=== PATIENT | male | born 1955 | race Caucasian/White ===

== ENCOUNTER 2018-06-30 16:47 | Inpatient (IN) ==
[2018-06-30] MEDS ORDERED: predniSONE 20 MG Tablet PO ONE (17:38)
[2018-06-30] MEDS ORDERED: Clindamycin 600 mg/NS Premix 600 MG/50 ML PIGGYBACK IV.SIG ONE (17:38)
--- NOTE | 2018-06-30 17:48 | ED ---
HPI General Chief complaint: Eye Problems Stated complaint: Doctor Sent Time Seen by Provider: 06/30/18 17:11 Source: patient Mode of arrival: ambulatory Limitations: no limitations History of Present Illness HPI Narrative: 62-year-old presents to the emergency department for evaluation of left eyelid swelling that has been persistent for a couple of days. Patient states that initially there was a stye present. He used bacitracin ointment and warm compresses without relief. Says that he was placed on Augmentin for 3 days, followed up with ophthalmology, Dr. Mayorga, and she recommended he come in for IV abx and steroids. Patient brings in a prescription from her office. He says he has chronic acne and takes doxycycline for prevention. He states that he has had a history of acne and similar skin lesions. He says that he occasionally requires antibiotics for improvement. Currently, he denies fever, chills, chest pain, shortness of breath, abdominal pain, nausea, vomiting, diarrhea. He says he has a history of hypertension and CKD 3. He says he has had a kidney removed secondary to kidney cancer. His oncology nurse navigator is Dr. Nagy. chief complaint: Reports eye pain Onset (ago): day(s) Onset description: gradual Duration: constant Location: Reports left eye Eye Symptoms: Reports pain Severity: mild Context: Denies history of glaucoma, recent eye procedure, contact lens use and trauma Associated symptoms: Denies headache, nausea/vomiting, fever, shortness of breath, numbness and weakness Related Data Home Medications Medication Instructions Recorded Confirmed amoxicillin-pot clavulanate 1 tab PO BID 06/30/18 06/30/18 [Augmentin] doxycycline hyclate 50 mg PO BID 06/30/18 06/30/18 losartan 100 mg PO DAILY 06/30/18 06/30/18 metoprolol succinate [Toprol XL] 50 mg PO DAILY 06/30/18 06/30/18 Allergies Allergy/AdvReac Type Severity Reaction Status Date / Time acetaminophen [From Vicodin] Allergy Itching, Verified 06/30/18 17:40 Generalized hydrocodone [From Vicodin] Allergy Itching, Verified 06/30/18 17:40 Generalized meperidine [From Demerol] Allergy Itching, Verified 06/30/18 17:40 Generalized Review of Systems ROS: all other systems reviewed are negative [facility] Medical History Medical History CKD (chronic kidney disease) stage 3, GFR 30-59 ml/min (Chronic) HTN (hypertension) (Chronic) Social History Social History Substance History: No History of Abuse Second Hand Smoke Exposure: No Smoking Status: Never smoker How Often Do You Have a Drink Containing Alcohol: Never Recent Travel in [facility] within the Last 8 Weeks: No Recent Out of Country Travel within the Last 8 Weeks: No Immunization History Tetanus Immunization: Unsure Exam Narrative Exam Narrative: GENERAL: Well-developed, well-nourished no acute distress SKIN: Focused skin assessment warm/dry. HEAD: Atraumatic. Normocephalic. EYES: Pupils equal and round. No scleral icterus. No injection or drainage. The left upper eyelid appears edematous and erythematous without surrounding edema. No lymph angiopathic spread. No ptosis, no proptosis. EOMI without restriction or pain. PERRLA. Mild tenderness to palpation of the upper eyelid. No discharge. ENT: No nasal bleeding or discharge. Mucous membranes pink and moist. NECK: Trachea midline. No JVD. CARDIOVASCULAR: Regular rate and rhythm. No murmur appreciated. RESPIRATORY: No accessory muscle use. Clear to auscultation. Breath sounds equal bilaterally. GASTROINTESTINAL: Abdomen soft, non-tender, nondistended. Hepatic and splenic margins not palpable. MUSCULOSKELETAL: No obvious deformities. No clubbing. No cyanosis. No edema. NEUROLOGICAL: Awake and alert. No obvious cranial nerve deficits. Motor grossly within normal limits. Normal speech. PSYCHIATRIC: Appropriate mood and affect; insight and judgment normal. Course Initial Documented Vital Signs Temperature 99.0 F 06/30/18 16:54 Pulse Rate 66 06/30/18 16:54 Respiratory Rate 16 06/30/18 16:54 Blood Pressure 176/77 H 06/30/18 16:54 Pulse Oximetry 98 06/30/18 16:54 Last Documented Vital Signs Temperature 99.0 F 06/30/18 16:54 Pulse Rate 64 06/30/18 19:49 Respiratory Rate 18 06/30/18 19:49 Blood Pressure 133/60 06/30/18 19:49 Pulse Oximetry 98 06/30/18 19:49 Medical Decision Making MDM Narrative Medical decision making narrative: 62-year-old male presents to the emergency department evaluation at the recommendation of Dr. Mayorga for left eyelid swelling and failure of outpatient antibiotics. She states that she saw this patient this morning and performed multiple tests to include visual acuity which was 20/20 bilateral, and states his pressures were normal. She says that she does not believe patient requires a CT at this time but should receive IV antibiotics and steroids. Vital signs are stable. Physical exam findings demonstrate a well-developed, well-nourished 70-year-old male in no acute distress. The left upper eyelid appears edematous and erythematous without surrounding edema. No lymph angiopathic spread. No ptosis , no proptosis. EOMI without restriction or pain. PERRLA. Mild tenderness to palpation of the upper eyelid. No discharge. Based off of H&P, I believe his condition is amenable to clindamycin IV. Will initiate this and prednisone. Ordered labs for evaluation. No leukocytosis. BUN/Cr 25/2.30, consistent with patient's history of CKD III. Will admit for preseptal cellulitis with failure of outpatient antibiotics. Medical Screen Exam Complete: Yes Emergency Medical Condition: Yes Lab Data Result diagrams: 06/30/18 17:40 06/30/18 17:40 Lab Results 06/30/18 06/30/18 06/30/18 Range/Units 17:40 17:40 17:40 WBC 8.4 (4.0-11.0) th/mm3 RBC 5.56 (4.50-5.90) mil/mm3 Hgb 17.2 H (13.0-17.0) gm/dL Hct 49.5 (39.0-51.0) % MCV 89.0 (80.0-100.0) fL MCH 30.9 (27.0-34.0) pg MCHC 34.7 (32.0-36.0) % RDW 15.3 (11.6-17.2) % Plt Count 237 (150-450) th/mm3 MPV 8.1 (7.0-11.0) fL Neut % (Auto) 78.1 H (16.0-70.0) % Lymph % (Auto) 10.2 (9.0-44.0) % [place] % (Auto) 9.3 H (0.0-8.0) % Eos % (Auto) 1.6 (0.0-4.0) % Baso % (Auto) 0.8 (0.0-2.0) % Neut # (Auto) 6.6 (1.8-7.7) th/mm3 Lymph # (Auto) 0.9 L (1.0-4.8) th/mm3 [place] # (Auto) 0.8 (0.0-0.9) th/mm3 Eos # (Auto) 0.1 (0.0-0.4) th/mm3 Baso # (Auto) 0.1 (0.0-0.2) th/mm3 WBC Differential . Differential Comment Auto diff final PT 10.2 (9.8-11.6) sec INR 1.0 Ratio APTT 23.4 L (24.3-30.1) sec Sodium 139 (136-145) meq/L Potassium 4.5 (3.5-5.1) meq/L Chloride 107 (98-107) meq/L Carbon Dioxide 23.8 (21.0-32.0) meq/L Anion Gap 8 (5-15) meq/L BUN 25 H (7-18) mg/dL Creatinine 2.30 H (0.60-1.30) mg/dL Estimated GFR 29 L (>89) mL/min Random Glucose 94 (74-106) mg/dL Calcium 8.4 L (8.5-10.1) mg/dL Total Bilirubin 0.4 (0.2-1.0) mg/dL AST 38 H (15-37) U/L ALT 55 (12-78) U/L Alkaline Phosphatase 75 (45-117) U/L Total Protein 7.2 (6.4-8.2) g/dL Albumin 3.3 L (3.4-5.0) g/dL Discharge Plan Discharge Disposition Patient Disposition: 30 Still Patient Discharge Condition Condition: Stable Discharge Details Diagnosis: Preseptal cellulitis Physicians Team ED Provider: Huber Yates ED Midlevel Provider: Padmini Montemayor Primary Care Provider: UNKNOWN, Attending Provider: Avelina Mills Other Providers: Gayathria,[employer] ; Gin Mayorga Discharge Interventions Interventions: Vital Signs Last Done: 06/30/18 17:12 Status ED Status: Admitted Observation Patient
[2018-06-30 18:15] LABS: Activated Partial Thrombo Time 23.4 sec (24.3-30.1); Prothrombin Time 10.2 sec (9.8-11.6)
[2018-06-30 18:19] LABS: Baso # (Auto) 0.1 th/mm3 (0.0-0.2); Baso % (Auto) 0.8 % (0.0-2.0); Eos # (Auto) 0.1 th/mm3 (0.0-0.4); Eos % (Auto) 1.6 % (0.0-4.0); Hematocrit 49.5 % (39.0-51.0); Hemoglobin 17.2 gm/dL (13.0-17.0); Lymph # (Auto) 0.9 th/mm3 (1.0-4.8); Lymph % (Auto) 10.2 % (9.0-44.0); Mean Corpuscular HGB Conc 34.7 % (32.0-36.0); Mean Corpuscular Hemoglobin 30.9 pg (27.0-34.0); Mean Platelet Volume 8.1 fL (7.0-11.0); Mono # (Auto) 0.8 th/mm3 (0.0-0.9); Mono % (Auto) 9.3 % (0.0-8.0); Neut # (Auto) 6.6 th/mm3 (1.8-7.7); Neut % (Auto) 78.1 % (16.0-70.0); Platelet Count 237 th/mm3 (150-450); Red Blood Count 5.56 mil/mm3 (4.50-5.90); Red Cell Distribution Width 15.3 % (11.6-17.2); White Blood Count 8.4 th/mm3 (4.0-11.0)
[2018-06-30 18:30] LABS: Alanine Aminotransferase 55 U/L (12-78)
[2018-06-30 18:32] LABS: Alkaline Phosphatase 75 U/L (45-117); Total Protein 7.2 g/dL (6.4-8.2)
[2018-06-30 18:37] LABS: Albumin 3.3 g/dL (3.4-5.0); Anion Gap 8 meq/L (5-15); Aspartate Aminotransferase 38 U/L (15-37); Blood Urea Nitrogen 25 mg/dL (7-18); Calcium 8.4 mg/dL (8.5-10.1); Carbon Dioxide 23.8 meq/L (21.0-32.0); Chloride 107 meq/L (98-107); Glomerular Filtration Rate 29 mL/min (>89); Glucose,Random 94 mg/dL (74-106); Potassium 4.5 meq/L (3.5-5.1); Sodium 139 meq/L (136-145)
[2018-06-30] MEDS ORDERED: Sod Chloride 0.9% Inj 1,000 ML IV.SIG SCH (18:45)
[2018-06-30] MEDS ORDERED: Bisacodyl 10 MG Supp RECTAL PRN (19:05)
--- NOTE | 2018-06-30 19:09 | P.HPIM ---
History of Present Illness Primary Care Physician: UNKNOWN History of Present Illness: This is a 62-year-old male with a PMH of Nephrectomy and CKD Stage III who was referred to the ER by Dr. Mayorga w/ Ophthalmology for admission and IV Abx. Pt w / left eye pain/swelling for 1 month, states it initially resolved without treatment, however had recurrence of left eye pain/swelling approx 8 days ago. Was seen by Dr. Mayorga and has been on Augmentin x3 days w/ minimal improvement, seen in office today and referred to the ER for admission. Denies fever or chills, no vision changes. Pain is intermittent, mild to moderate, 5/10, non- radiating. On arrival, BP 176/77, HR 66, O2 sat 98% on RA, Temp 99.0. CBC essentially unremarkable except Hgb 17.2. INR 1.0. Creatinine 2.30, baseline per patient. S/p Clinda and Prednisone in ER. No significant pain complaints at this time. - Diagnosis (1) Preseptal cellulitis (2) Failure of outpatient treatment (3) CKD (chronic kidney disease) stage 3, GFR 30-59 ml/min Review of Systems PAST FAMILY HISTORY: Reviewed, no h/o DM or CAD. All other systems reviewed negative except as stated in HPI PMFSH - History History Provided By: Patient - Medical History Medical History: Medical History (Last Updated 06/30/18 @ 17:44 by CARRINGTON You) CKD (chronic kidney disease) stage 3, GFR 30-59 ml/min HTN (hypertension) - Tobacco History Second Hand Smoke Exposure: No Tobacco Use In Past 30 Days: No Smoking Status: Never smoker - Alcohol History How Often Do You Have a Drink Containing Alcohol: Never - Substance Use History Substance History: No History of Abuse - Travel History Recent Travel in the [place] Within the Last 8 Weeks: No Recent Travel Out of the Country Within the Last 8 Weeks: No - Immunization History Tetanus Immunization: Unsure Medications and Allergies Active Medications: Active Medications Al Hydroxide/Mg Hydroxide (Milk Of Magnesia Liq) 30 ml PO Q12H PRN PRN Reason: Mild Constipation Bisacodyl (Dulcolax Supp) 10 mg RECTAL DAILY PRN PRN Reason: SEVERE CONSITIPATION Sodium Chloride (Ns Inj) 1,000 mls @ 0 mls/hr IV.SIG BOLUS BHARTI Clindamycin/Sodium Chloride (Cleocin 900 Mg/Ns Premix) 900 mg in 50 mls @ 100 mls/hr IV.SIG Q8H [facility] Sodium Chloride (Ns Inj) 1,000 mls @ 100 mls/hr IV.CONT .Q10H [facility] Lactulose (Lactulose Liq) 30 ml PO DAILY PRN PRN Reason: SEVERE CONSITIPATION Metoprolol Succinate (Toprol Xl) 50 mg PO DAILY [facility] Non-Formulary Medication (Losartan [Losartan]) 100 mg PO DAILY [facility] Ondansetron HCl (Zofran Inj) 4 mg IV.PUSH Q6H PRN PRN Reason: NAUSEA OR VOMITING Prednisone (Deltasone) 50 mg PO DAILY [facility] Senna/Docusate Sodium (Angelique-Colace) 1 tab PO BID [facility] Sennosides (Senokot) 17.2 mg PO Q12H PRN PRN Reason: Moderate Constipation Allergies Allergy/AdvReac Type Severity Reaction Status Date / Time acetaminophen [From Vicodin] Allergy Itching, Verified 06/30/18 17:40 Generalized hydrocodone [From Vicodin] Allergy Itching, Verified 06/30/18 17:40 Generalized meperidine [From Demerol] Allergy Itching, Verified 06/30/18 17:40 Generalized Home Medications Medication Instructions Recorded Confirmed Type RX: doxycycline hyclate 50 mg PO BID 06/30/18 06/30/18 History RX: losartan 100 mg PO DAILY 06/30/18 06/30/18 History amoxicillin-pot clavulanate 1 tab PO BID 06/30/18 06/30/18 History [Augmentin] metoprolol succinate [Toprol XL] 50 mg PO DAILY 06/30/18 06/30/18 History Exam Vital signs: Vital Signs 06/30/18 16:54 Temperature 99.0 F Pulse Rate 66 Respiratory Rate 16 Blood Pressure 176/77 H Pulse Oximetry 98 Intake & Output 06/30/18 06/30/18 07/01/18 06:59 18:59 06:59 Intake Total 50 / 50 Balance 50 / 50 Weight 114.305 kg Intake: IV 50 / 50 Cleocin 600 mg/NS Premix 600 mg 50 / 50 In 50 ml @ 100 mls/hr IV.SIG ONCE ONE Rx#:[id number] Narrative: PE: GENERAL: Middle-aged white male in no acute distress. SKIN: Focused skin assessment warm and dry. HEENT: PERRLA, EOMI. No scleral icterus or conjunctival pallor. No lid lag or facial droop. Left eye w/ preseptal cellulitis/erythema/edema. CARDIOVASCULAR: Regular rate and rhythm. No obvious murmurs to auscultation. No chest tenderness to palpation. RESPIRATORY: No rhonchi or wheezing. Clear to auscultation. Breath sounds equal bilaterally. GASTROINTESTINAL: Abdomen soft, non-tender, nondistended. BS normal. MUSCULOSKELETAL: Extremities without clubbing, cyanosis, or edema. No obvious deformities. NEUROLOGICAL: Awake, alert and oriented x4. No focal neurologic deficits. Moving both upper and lower extremities spontaneously. PSYCHIATRIC: Appropriate mood and affect. Insight and judgment normal. Results - Labs CBC & Chem 7: 06/30/18 17:40 06/30/18 17:40 Labs: Short CBC 06/30/18 Range/Units 17:40 WBC 8.4 (4.0-11.0) th/mm3 Hgb 17.2 H (13.0-17.0) gm/dL Hct 49.5 (39.0-51.0) % Plt Count 237 (150-450) th/mm3 BMP 06/30/18 17:40 Sodium 139 Potassium 4.5 Chloride 107 Carbon Dioxide 23.8 BUN 25 H Creatinine 2.30 H Calcium 8.4 L Liver Function 06/30/18 Range/Units 17:40 Total Bilirubin 0.4 (0.2-1.0) mg/dL AST 38 H (15-37) U/L ALT 55 (12-78) U/L Alkaline Phosphatase 75 (45-117) U/L Albumin 3.3 L (3.4-5.0) g/dL Caprini VTE Risk Assessment Caprini VTE Risk Assessment: No/Low Risk (score <= 1) Caprini Risk Assessment Model: Point Value = 1 Point Value = 2 Point Value = 3 Point Value = 5 Age 41-60 Minor surgery BMI > 25 kg/m2 Swollen legs Varicose veins or History of unexplained or recurrent spontaneous Oral contraceptives or hormone replacement Sepsis (< 1 month) Serious lung disease, including pneumonia (< 1 month) Abnormal pulmonary function Acute myocardial infarction Congestive heart failure (< 1 month) History of inflammatory bowel disease Medical patient at bed rest Age 61-74 Arthroscopic surgery Major open surgery (> 45 min) Laparoscopic surgery (> 45 min) Malignancy Confined to bed (> 72 hours) Immobilizing plaster cast Central venous access Age >= 75 History of VTE Family history of VTE Factor V Leiden Prothrombin [id number] Lupus anticoagulant Anticardiolipin antibodies Elevated serum homocysteine Heparin-induced thrombocytopenia Other congenital or acquired thrombophilia Stroke (< 1 month) Elective arthroplasty Hip, pelvis, or leg fracture Acute spinal cord injury (< 1 month) Prophylaxis Regimen: Total Risk Factor Score Risk Level Prophylaxis Regimen 0-1 Low Early ambulation 2 Moderate Order ONE of the following: *Sequential Compression Device (SCD) *Heparin 5000 units SQ BID 3-4 Higher Order ONE of the following medications: *Heparin 5000 units SQ TID *Enoxaparin/Lovenox 40 mg SQ daily (WT < 150 kg, CrCl > 30 mL/min) *Enoxaparin/Lovenox 30 mg SQ daily (WT < 150 kg, CrCl > 10-29 mL/min) *Enoxaparin/Lovenox 30 mg SQ BID (WT < 150 kg, CrCl > 30 mL/min) AND/OR *Sequential Compression Device (SCD) 5 or more Highest Order ONE of the following medications: *Heparin 5000 units SQ TID (Preferred with Epidurals) *Enoxaparin/Lovenox 40 mg SQ daily (WT < 150 kg, CrCl > 30 mL/min) *Enoxaparin/Lovenox 30 mg SQ daily (WT < 150 kg, CrCl > 10-29 mL/min) *Enoxaparin/Lovenox 30 mg SQ BID (WT < 150 kg, CrCl > 30 mL/min) AND *Sequential Compression Device (SCD) Assessment and Plan - Assessment (1) Preseptal cellulitis Code(s): L03.213 - Periorbital cellulitis Status: Acute (2) Failure of outpatient treatment Code(s): Z78.9 - Other specified health status Status: Acute (3) CKD (chronic kidney disease) stage 3, GFR 30-59 ml/min Code(s): N18.3 - Chronic kidney disease, stage 3 (moderate) Status: Acute - Plan A/P: 1. Preseptal Cellulitis: Left. w/ Failed outpatient therapy, referred to ER by Dr. Mayorga for admission/IV Abx. S/p Clinda and Prednisone in ER, will continue w/ IV Abx and steroid therapy. I spoke w/ Dr. Mayorga and she will gladly see in am, will place formal consult for further eval/recommendations. 2. CKD: Stage III, h/o Nephrectomy, follows w/ Dr. Nagy, creatinine 2.30, baseline per patient. IVF for hydration, repeat labs in am 3. DVT Prophylaxis: SCD/Teds 4. Social work for d/c planning as needed. 5. Case discussed w/ ER physician at length, labs/records/imaging reviewed by me.
[2018-06-30] MEDS: Sod Chloride 0.9% Inj 1,000 ML IV.CONT SCH (22:31)
[2018-07-01] MEDS: Senna/Docusate Sodium 8.6/50 MG Tablet PO SCH ×2 (01:43→09:09)
[2018-07-01] MEDS: Clindamycin 900 mg/NS Premix 900 MG/50 ML PIGGYBACK IV.SIG SCH ×3 (01:45→17:47)
[2018-07-01] MEDS: Sod Chloride 0.9% Inj 1,000 ML IV.CONT SCH (07:11)
[2018-07-01 07:48] LABS: Baso % (Auto) 0.3 % (0.0-2.0); Eos % (Auto) 0.2 % (0.0-4.0); Hematocrit 46.5 % (39.0-51.0); Hemoglobin 16.2 gm/dL (13.0-17.0); Lymph # (Auto) 0.6 th/mm3 (1.0-4.8); Lymph % (Auto) 5.4 % (9.0-44.0); Mean Corpuscular HGB Conc 34.8 % (32.0-36.0); Mean Corpuscular Hemoglobin 30.9 pg (27.0-34.0); Mean Corpuscular Volume 88.7 fL (80.0-100.0); Mean Platelet Volume 7.7 fL (7.0-11.0); Mono # (Auto) 0.9 th/mm3 (0.0-0.9); Mono % (Auto) 8.5 % (0.0-8.0); Neut % (Auto) 85.6 % (16.0-70.0); Platelet Count 201 th/mm3 (150-450); Red Blood Count 5.24 mil/mm3 (4.50-5.90); Red Cell Distribution Width 15.3 % (11.6-17.2); White Blood Count 10.5 th/mm3 (4.0-11.0)
[2018-07-01 08:13] LABS: Alanine Aminotransferase 44 U/L (12-78); Alkaline Phosphatase 60 U/L (45-117); Anion Gap 7 meq/L (5-15); Aspartate Aminotransferase 30 U/L (15-37); Blood Urea Nitrogen 25 mg/dL (7-18); Calcium 8.6 mg/dL (8.5-10.1); Chloride 106 meq/L (98-107); Glomerular Filtration Rate 33 mL/min (>89); Glucose,Random 84 mg/dL (74-106); Potassium 4.6 meq/L (3.5-5.1); Sodium 140 meq/L (136-145); Total Protein 6.4 g/dL (6.4-8.2)
--- NOTE | 2018-07-01 11:27 | P.PN ---
Subjective Interval history: Follow-up preseptal cellulitis July 01, 2018-patient seen and examined, reported improvement of left eye pain and swelling. Currently afebrile Physical Exam Vital signs: Vital Signs 06/30/18 16:54 06/30/18 19:49 07/01/18 00:00 Temperature 99.0 F 98.5 F Pulse Rate 66 64 63 Respiratory Rate 16 18 20 Blood Pressure 176/77 H 133/60 150/68 H Pulse Oximetry 98 98 93 L 07/01/18 04:00 07/01/18 08:00 Temperature 97.9 F 98.0 F Pulse Rate 72 92 H Respiratory Rate 20 16 Blood Pressure 140/70 174/72 H Pulse Oximetry 97 97 Intake & Output 06/30/18 07/01/18 07/01/18 18:59 06:59 18:59 Intake Total 100 / 100 Balance 100 / 100 Weight 114.305 kg 119.8 kg Intake: IV 100 / 100 Cleocin 600 mg/NS Premix 600 mg 50 / 50 In 50 ml @ 100 mls/hr IV.SIG ONCE ONE Rx#:[id number] Cleocin 900 mg/NS Premix 900 mg 50 / 50 In 50 ml @ 100 mls/hr IV.SIG Q8H [facility] Rx#:[id number] Other: # Voids 2 Narrative: PE: GENERAL: Middle-aged white male in no acute distress. SKIN: Focused skin assessment warm and dry. HEENT: PERRLA, EOMI. No scleral icterus or conjunctival pallor. No lid lag or facial droop. Left eye w/ preseptal cellulitis/erythema/edema. CARDIOVASCULAR: Regular rate and rhythm. No obvious murmurs to auscultation. No chest tenderness to palpation. RESPIRATORY: No rhonchi or wheezing. Clear to auscultation. Breath sounds equal bilaterally. GASTROINTESTINAL: Abdomen soft, non-tender, nondistended. BS normal. MUSCULOSKELETAL: Extremities without clubbing, cyanosis, or edema. No obvious deformities. NEUROLOGICAL: Awake, alert and oriented x4. No focal neurologic deficits. Moving both upper and lower extremities spontaneously. PSYCHIATRIC: Appropriate mood and affect. Insight and judgment normal. Results - Labs CBC & Chem 7: 07/01/18 06:48 07/01/18 06:48 Laboratory Results - last 24 hr 06/30/18 06/30/18 06/30/18 17:40 17:40 17:40 WBC 8.4 RBC 5.56 Hgb 17.2 H Hct 49.5 MCV 89.0 MCH 30.9 MCHC 34.7 RDW 15.3 Plt Count 237 MPV 8.1 Neut % (Auto) 78.1 H Lymph % (Auto) 10.2 [place] % (Auto) 9.3 H Eos % (Auto) 1.6 Baso % (Auto) 0.8 Neut # (Auto) 6.6 Lymph # (Auto) 0.9 L [place] # (Auto) 0.8 Eos # (Auto) 0.1 Baso # (Auto) 0.1 WBC Differential . Differential Comment Auto diff final PT 10.2 INR 1.0 APTT 23.4 L Sodium 139 Potassium 4.5 Chloride 107 Carbon Dioxide 23.8 Anion Gap 8 BUN 25 H Creatinine 2.30 H Estimated GFR 29 L Random Glucose 94 Calcium 8.4 L Total Bilirubin 0.4 AST 38 H ALT 55 Alkaline Phosphatase 75 Total Protein 7.2 Albumin 3.3 L 07/01/18 07/01/18 06:48 06:48 WBC 10.5 RBC 5.24 Hgb 16.2 Hct 46.5 MCV 88.7 MCH 30.9 MCHC 34.8 RDW 15.3 Plt Count 201 MPV 7.7 Neut % (Auto) 85.6 H Lymph % (Auto) 5.4 L [place] % (Auto) 8.5 H Eos % (Auto) 0.2 Baso % (Auto) 0.3 Neut # (Auto) 9.0 H Lymph # (Auto) 0.6 L [place] # (Auto) 0.9 Eos # (Auto) 0.0 Baso # (Auto) 0.0 WBC Differential . Differential Comment Auto diff final PT INR APTT Sodium 140 Potassium 4.6 Chloride 106 Carbon Dioxide 27.0 Anion Gap 7 BUN 25 H Creatinine 2.05 H Estimated GFR 33 L Random Glucose 84 Calcium 8.6 Total Bilirubin 0.3 AST 30 ALT 44 Alkaline Phosphatase 60 Total Protein 6.4 D Albumin 3.0 L Assessment and Plan - Assessment (1) Preseptal cellulitis Code(s): L03.213 - Periorbital cellulitis Status: Acute (2) Failure of outpatient treatment Code(s): Z78.9 - Other specified health status Status: Acute (3) CKD (chronic kidney disease) stage 3, GFR 30-59 ml/min Code(s): N18.3 - Chronic kidney disease, stage 3 (moderate) Status: Acute - Plan 62-year-old man with 1. Preseptal Cellulitis: Left. w/ Failed outpatient therapy, referred to ER by Dr. Mayorga for admission/IV Abx. S/p Clinda and Prednisone in ER, will continue w/ IV Abx clindamycin 900 mg IV q. 8-hour and steroid therapy. Ophthalmology consultation pending 2. CKD: Stage III, h/o Nephrectomy, follows w/ Dr. Nagy, creatinine 2.30, baseline per patient.d/c IVF for hydration 3. DVT Prophylaxis: SCD/Teds
--- NOTE | 2018-07-01 11:56 | P.CON ---
History of Present Illness Service: Ophthalmology Reason for Consult: left preseptal cellulitis Primary Care Provider: UNKNOWN History of Present Illness: 62-year-old male with a PMH of Nephrectomy and CKD Stage III who was sent for IV Abx for preseptal cellulitis of left eyelid that was not improving with oral antibiotics. Pt w/ left eye pain/swelling for 1 month, states it initially resolved without treatment, however had recurrence of left eye pain/swelling approx 8 days ago. Has been on Augmentin x3 days w/ minimal improvement, seen in office yesterday and referred to the ER for admission. Denies vision changes. Feels symptoms have improved overnight. PMFSH - History History Provided By: Patient - Medical History Medical History: Medical History (Last Updated 06/30/18 @ 17:44 by CARRINGTON You) CKD (chronic kidney disease) stage 3, GFR 30-59 ml/min HTN (hypertension) - Tobacco History Second Hand Smoke Exposure: No Tobacco Use In Past 30 Days: No Smoking Status: Never smoker - Alcohol History How Often Do You Have a Drink Containing Alcohol: Never - Substance Use History Substance History: No History of Abuse - Travel History Recent Travel in the [place] Within the Last 8 Weeks: No Recent Travel Out of the Country Within the Last 8 Weeks: No - Immunization History Tetanus Immunization: Unsure Medications and Allergies Active Medications: Active Medications Al Hydroxide/Mg Hydroxide (Milk Of Magnesia Liq) 30 ml PO Q12H PRN PRN Reason: Mild Constipation Bisacodyl (Dulcolax Supp) 10 mg RECTAL DAILY PRN PRN Reason: SEVERE CONSITIPATION Sodium Chloride (Ns Inj) 1,000 mls @ 0 mls/hr IV.SIG BOLUS BHARTI Clindamycin/Sodium Chloride (Cleocin 900 Mg/Ns Premix) 900 mg in 50 mls @ 100 mls/hr IV.SIG Q8H [facility]ARTI Last Admin: 07/01/18 11:16 Dose: 100 mls/hr Lactulose (Lactulose Liq) 30 ml PO DAILY PRN PRN Reason: SEVERE CONSITIPATION Losartan Potassium (Cozaar) 100 mg PO DAILY [facility] Last Admin: 07/01/18 09:06 Dose: 100 mg Metoprolol Succinate (Toprol Xl) 50 mg PO DAILY [facility] Last Admin: 07/01/18 09:06 Dose: 50 mg Ondansetron HCl (Zofran Inj) 4 mg IV.PUSH Q6H PRN PRN Reason: NAUSEA OR VOMITING Prednisone (Deltasone) 50 mg PO DAILY [facility] Last Admin: 07/01/18 09:07 Dose: 50 mg Sennosides (Senokot) 17.2 mg PO Q12H PRN PRN Reason: Moderate Constipation Allergies Allergy/AdvReac Type Severity Reaction Status Date / Time acetaminophen [From Vicodin] Allergy Itching, Verified 06/30/18 17:40 Generalized hydrocodone [From Vicodin] Allergy Itching, Verified 06/30/18 17:40 Generalized meperidine [From Demerol] Allergy Itching, Verified 06/30/18 17:40 Generalized Home Medications Medication Instructions Recorded Confirmed Type amoxicillin-pot clavulanate 1 tab PO BID 06/30/18 06/30/18 History [Augmentin] doxycycline hyclate 50 mg PO BID 06/30/18 06/30/18 History losartan 100 mg PO DAILY 06/30/18 06/30/18 History metoprolol succinate [Toprol XL] 50 mg PO DAILY 06/30/18 06/30/18 History Physical Exam Vital signs: Vital Signs 06/30/18 16:54 06/30/18 19:49 07/01/18 00:00 Temperature 99.0 F 98.5 F Pulse Rate 66 64 63 Respiratory Rate 16 18 20 Blood Pressure 176/77 H 133/60 150/68 H Pulse Oximetry 98 98 93 L 07/01/18 04:00 07/01/18 08:00 Temperature 97.9 F 98.0 F Pulse Rate 72 92 H Respiratory Rate 20 16 Blood Pressure 140/70 174/72 H Pulse Oximetry 97 97 Intake & Output 06/30/18 07/01/18 07/01/18 18:59 06:59 18:59 Intake Total 100 / 100 Balance 100 / 100 Weight 114.305 kg 119.8 kg Intake: IV 100 / 100 Cleocin 600 mg/NS Premix 600 mg 50 / 50 In 50 ml @ 100 mls/hr IV.SIG ONCE ONE Rx#:[id number] Cleocin 900 mg/NS Premix 900 mg 50 / 50 In 50 ml @ 100 mls/hr IV.SIG Q8H [facility] Rx#:[id number] Other: # Voids 2 - Detailed Eye Exam Comments: Va cc at near OD 20/20, OS 20/20 EOM full OU, no diplopia CVF full OU Pupils 2-1 no APD OU IOP normal to palpation OU Anterior exam OD - normal eyelid, C/S W&Q, K clear, AC deep, pupil round, lens clear OS - upper eyelid edema and erythema, C/S W&Q, K clear, AC deep, pupil round, lens clear Assessment and Plan - Assessment (1) Preseptal cellulitis Code(s): L03.213 - Periorbital cellulitis Status: Acute Plan: Failed outpatient therapy on Augmentin. Improved exam and symptoms on IV Clindamycin and steroids. Ok to discharge tomorrow morning on Prednisone 50mg po daily, and Clindamycin 450mg q8h. Follow up as outpatient next week.
[2018-07-02] MEDS: Clindamycin 900 mg/NS Premix 900 MG/50 ML PIGGYBACK IV.SIG SCH ×2 (02:02→09:06)
[2018-07-02 08:46] VITALS: BP 128/70; PULSE 68; RESP 16; TEMP 98.1; O2SAT 97
--- NOTE | 2018-07-02 09:24 | P.PN ---
Subjective Interval history: Follow-up preseptal cellulitis July 01, 2018-patient seen and examined, reported improvement of left eye pain and swelling. Currently afebrile July 02, 2018-patient seen and examined; some slight left eye swelling this AM, but patient states he is feeling much better Physical Exam Vital signs: Vital Signs 07/01/18 12:00 07/01/18 16:00 07/01/18 20:00 Temperature 97.9 F 98.4 F 98.2 F Pulse Rate 65 77 78 Respiratory Rate 14 16 17 Blood Pressure 164/72 H 146/62 H 174/56 H Pulse Oximetry 99 98 96 07/02/18 00:00 07/02/18 04:48 07/02/18 08:00 Temperature 98.0 F 98.3 F 98.1 F Pulse Rate 67 66 68 Respiratory Rate 18 18 16 Blood Pressure 153/66 H 136/63 128/70 Pulse Oximetry 98 98 97 Intake & Output 07/01/18 07/02/18 07/02/18 18:59 06:59 18:59 Intake Total 1100 / 1100 850 / 850 Balance 1100 / 1100 850 / 850 Weight 120 kg Intake: IV 1100 / 1100 50 / 50 NS Inj 1,000 ML @ 100 mls/hr IV 1000 / 1000 .CONT .Q10H BHARTI Rx#:[id number] Cleocin 900 mg/NS Premix 900 mg 100 / 100 50 / 50 In 50 ml @ 100 mls/hr IV.SIG Q8H BHARTI Rx#:[id number] Oral 800 / 800 Other: # Voids 5 Narrative: PE: GENERAL: Middle-aged white male in no acute distress. SKIN: Focused skin assessment warm and dry. HEENT: PERRLA, EOMI. No scleral icterus or conjunctival pallor. No lid lag or facial droop. Left eye w/ preseptal cellulitis/erythema/edema. CARDIOVASCULAR: Regular rate and rhythm. No obvious murmurs to auscultation. No chest tenderness to palpation. RESPIRATORY: No rhonchi or wheezing. Clear to auscultation. Breath sounds equal bilaterally. GASTROINTESTINAL: Abdomen soft, non-tender, nondistended. BS normal. MUSCULOSKELETAL: Extremities without clubbing, cyanosis, or edema. No obvious deformities. NEUROLOGICAL: Awake, alert and oriented x4. No focal neurologic deficits. Moving both upper and lower extremities spontaneously. PSYCHIATRIC: Appropriate mood and affect. Insight and judgment normal. Results - Labs CBC & Chem 7: 07/01/18 06:48 07/01/18 06:48 - Procedures none Assessment and Plan - Assessment (1) Preseptal cellulitis Code(s): L03.213 - Periorbital cellulitis Status: Acute (2) Failure of outpatient treatment Code(s): Z78.9 - Other specified health status Status: Acute (3) CKD (chronic kidney disease) stage 3, GFR 30-59 ml/min Code(s): N18.3 - Chronic kidney disease, stage 3 (moderate) Status: Acute - Plan 62-year-old man with 1. Preseptal Cellulitis: Left. w/ Failed outpatient therapy, referred to ER by Dr. Mayorga for admission/IV Abx. S/p Clinda and Prednisone in ER, will continue w/ IV Abx clindamycin 900 mg IV q. 8-hour and steroid therapy. Ophthalmology consultation appreciated. He will be discharge with Clinda 450mg Q8H + Prednisone 50mg daily x 7 days 2. CKD: Stage III, h/o Nephrectomy, follows w/ Dr. Nagy, creatinine 2.30, baseline per patient.Improved with IVF for hydration 3. DVT Prophylaxis: SCD/Teds Discharge patient to home Condition on discharge: Improved Regular Diet as tolerated Ad [facility] activity Rx written:See EMR Follow-up with primary care physician Ophthalmology next week
== END 2018-07-02 09:41 | disposition home or self-care (01) ==
LOC: NEDA 16:47 → NEPC 16:47 → N05 20:15
PROVIDERS: ADMIT Hospitalist; ATTEND Hospitalist